=== PATIENT | female | born 1995 | race Caucasian/White ===

== ENCOUNTER 2021-08-27 21:10 | Outpatient (REF) | payer OTHER, SELFPAY ==
[2021-08-27 21:33] LABS: COVID-19 Test Positive (Negative)
== END 2021-08-27 21:11 | disposition home or self-care (01) ==
LOC: HO.LAB 21:10
PROVIDERS: PCP Internal Medicine; Visit Provider Internal Medicine
DX: Z20.822 Contact with and (suspected) exposure to COVID-19 (principal)
CPT/HCPCS: 36415; 87635